=== PATIENT | male | born 1950 | race Caucasian/White ===

== ENCOUNTER 2020-08-20 08:20 | Day surgery (SDC) | payer OTHER ==
[~2020-08-20] VITALS: Ht 185.4 cm; Wt 94.5 kg
[~2020-08-20 08:20] MED LIST: Aspir 8181 MG; CIME300; Flonase 0.05% N16 GM; HYDACE5 PO; IBUP400; LORA10 PO; TRIA55OI; VICODIN 5-3001 EACH PO
== END 2020-08-20 10:42 | disposition home or self-care (01) ==
LOC: ORSCSDS 08:20
PROVIDERS: Internal Medicine Gastroenterology
PROC: 0DB58ZX Excision of Esophagus, Via Natural or Artificial Opening Endoscopic, Diagnostic (ICD-10-PCS; principal; 2020-08-20 09:45)
PROC: 0D758ZZ Dilation of Esophagus, Via Natural or Artificial Opening Endoscopic (ICD-10-PCS; principal; 2020-08-20 09:45)
DX: R13.10 Dysphagia, unspecified (principal); K21.00 Gastro-esophageal reflux disease with esophagitis, without bleeding; K22.2 Esophageal obstruction; K44.9 Diaphragmatic hernia without obstruction or gangrene; Z79.899 Other long term (current) drug therapy
CPT/HCPCS: 88305; J2704; J7120

== ENCOUNTER → 2023-04-02 | Outpatient (CLI) | payer OTHER | LOC: LAB SHORT 12:06 → LAB 12:06 → PLD 12:06 | DX: D48.5 Neoplasm of uncertain behavior of skin (principal) | CPT/HCPCS: 88305 ==

== ENCOUNTER 2025-03-13 08:08 | Day surgery (SDC) | payer OTHER ==
[~2025-03-13] VITALS: Ht 188 cm; Wt 97.3 kg
[~2025-03-13 08:08] MED LIST changes: +NS 500 ML IV ONE
[2025-03-13] MEDS ORDERED: VITAMIN D (08:46)
[2025-03-13] MEDS ORDERED: Clindamycin 900mg in D5W 50ML 50 ML IV ONE (08:51)
[2025-03-13] MEDS ORDERED: NS 500 ML IV ONE (09:00)
--- NOTE | 2025-03-13 09:06 | NUR ---
03/13/25 0906 [facility] 0855: TIMEOUT AND INJECTION BY DR ADEN 9 CC OF MIX OF 9 CC LIDOCAINE 1% WITH EPI 1:100,000 WITH 1 CC SODIUM BICARB.PT TOLERATED WELL.
[2025-03-13] MEDS ORDERED: propofoL 20 ML IV ONE (09:33)
[2025-03-13] MEDS ORDERED: Midazolam HCl 1MG / ML 2ML Vial ONE (09:33)
[2025-03-13] MEDS ORDERED: Ketorolac Tromethamine 30mg Vial ONE (09:38)
[2025-03-13 09:51] VITALS: BP 123/78
--- NOTE | 2025-03-13 09:57 | NUR ---
03/13/25 0957 MIAH AQUINO PT ARRIVED NRB 10L. PT VERY SLEEPY. PT'S RADIAL PULSE-STRONG, PALPABLE, HAND IS WARM, CAP REFILL IS LESS THAN 3 SECONDS. DELVIN VILLAFANA. NEHEMIAH-MARIANELA
== END 2025-03-13 10:55 | disposition home or self-care (01) ==
LOC: ORSCSDS 08:08
PROVIDERS: Orthopaedic Surgery
PROC: 0LN80ZZ Release Left Hand Tendon, Open Approach (ICD-10-PCS; principal; 2025-03-13 09:30)
DX: M65.332 Trigger finger, left middle finger (principal); M65.322 Trigger finger, left index finger; M65.342 Trigger finger, left ring finger
CPT/HCPCS: J1885; J2250; J2704; J7040